=== PATIENT | female | born 1980 | race Caucasian/White ===

== ENCOUNTER 2017-05-23 17:11 | Emergency (ER) | payer MEDICAID ==
[2017-05-23 17:21] VITALS: BP 119/72
--- NOTE | 2017-05-23 17:50 | EDM.PDOC ---
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 Patient is presently 10 weeks . She is a 004. She reports that this morning she developed some vaginal bleeding. Reports that some has been both brown at time and bright red at other time. Not enough to wear a pad. She reports that she did pass a pea-sized clots. Patient has been driving home from [place] today. Reports that later this afternoon the cramping and abdominal pain started. Reports that it is lower in her pelvis bilaterally and radiates to her back. Patient reports associated symptoms of increased urge to urinate. No fevers, nausea, vomiting or dysuria. Patient states that she did have intercourse last night. 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 GENERAL providers Dr. morocho. She has been seeing him for this . Patient reports on Monday, while in [place], she had a severe migraine. She states she has taken Tylenol 3 in the past for migraines. She had 2 Tylenol No. 3 for migraines which she took. She reports the pain was behind her eyes. She was seen at the ER [place]. Reports she was given a combination of fluids, Reglan and Benadryl. States at that time the ER physician performed an ultrasound. She states that she does not recall if the ER physician heard heart tones at that time. Onset: Today - Related Data Allergies Allergy/AdvReac Type Severity Reaction Status Date / Time Sulfa (Sulfonamide Allergy Hives Verified 02/24/15 19:52 Antibiotics) Home Meds: Home Meds Docusate Sodium [Colace] 100 mg PO BID 02/24/15 [History] Pnv with Ca,No.71/Iron/Fa [ Vitamin Tablet] 1 each PO DAILY 02/24/15 [ History] Acetaminophen [Tylenol] 650 mg PO Q6H PRN #50 tablet 02/25/15 [Rx] Hydrocodone/Acetaminophen [Hawthorn 5-325] 1 tab PO Q6HR PRN #10 tablet 05/23/17 [ Rx] Past Medical History Cardiovascular History: Reports: Other (See Below) Other Cardiovascular History: CHF Gastrointestinal History: Reports: GERD 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 GENERAL History: Reports: Neurological History: Reports: Migraines Endocrine/Metabolic History: Reports: Diabetes, Gestational Oncologic (Cancer) History: Reports: Cervix - Past Surgical History HEENT Surgical History: Reports: Adenoidectomy, Tonsillectomy GI Surgical History: Reports: Bariatric Procedure, Cholecystectomy Social & Family History - Family History Family Medical History: Noncontributory - Tobacco Use Smoking Status *Q: Never Smoker Second Hand Smoke Exposure: Yes - Caffeine Use Caffeine Use: Reports: Coffee - Alcohol Use Days Per Week of Alcohol Use: 0 - Recreational Drug Use Recreational Drug Use: No Drug Use in Last 12 Months: No - Living Situation & Occupation Living situation: Reports: with Significant Other Occupation: Employed ED ROS GENERAL - Review of Systems Review Of Systems: See Below Constitutional: Denies: Fever GI/Abdominal: Denies: Nausea, Vomiting : Reports: Pain (pelvic pain bilaterally radiating to her back ), Other ( vaginal bleeding). Denies: Dysuria Neurological: Reports: Headache (headache last Monday, required an ER visit to a hospital in [place]) ED EXAM - Physical Exam Exam: See Below Exam Limited By: No Limitations General Appearance: Alert, WD/WN, No Apparent Distress Respiratory/Chest: No Respiratory Distress, Lungs Clear, Normal Breath Sounds Cardiovascular: Normal Peripheral Pulses, Regular Rate, Rhythm, Systolic Murmur (grade 2) GI/Abdominal: Normal Bowel Sounds, Soft, Non-Tender (Female) Exam: Vaginal Bleeding. No: Cervical Dilatation, Products of Conception Heart Tones: Not [place] Neurological: Alert, Oriented, Normal Cognition Psychiatric: Normal Affect, Normal Mood Skin Exam: Warm, Dry, Normal Color Course - Vital Signs Last Recorded V/S: Last Vital Signs Temp 36.7 C 05/23/17 17:19 Pulse 79 05/23/17 19:50 Resp 18 05/23/17 19:50 BP 119/72 05/23/17 17:19 Pulse Ox 97 05/23/17 19:50 - Orders/Labs/Meds Labs: Laboratory Tests 05/23/17 05/23/17 Range/Units 18:00 18:00 HCG, Quant 4575.0 mIU/mL Urine Color Yellow (Yellow) Urine Appearance Clear (Clear) Urine pH 7.0 (5.0-8.0) Ur Specific [place] 1.010 (1.005-1.030) Urine Protein Negative (Negative) Urine Glucose (UA) Negative (Negative) Urine Ketones Negative (Negative) Urine Occult Blood 2+ H (Negative) Urine Nitrite Negative (Negative) Urine Bilirubin Negative (Negative) Urine Urobilinogen 0.2 (0.2-1.0) Ur Leukocyte Esterase Negative (Negative) Urine RBC 0-5 (0-5) /hpf Urine WBC 0-5 (0-5) /hpf Ur Epithelial Cells 0-5 (0-5) /hpf Urine Bacteria Rare (FEW) /hpf Urine Mucus Not seen (FEW) /hpf - Radiology Interpretation Free Text/Narrative:: Transvaginal ultrasound depression per Dr. Pat: single intrauterine gestation. Embryo identified. No heart activity is seen when examining for 1 minute. Growth of the embryo is not appropriate from previous exam. The impression is a single intrauterine gestation. Lack of appropriate growth is seen from prior exam. No heart activity seen. Findings are compatible with nonviable . - Re-Assessments/Exams Free Text/Narrative Re-Assessment/Exam: 05/23/17 19:35 UA has 2+ blood. HCG is 4575. This is down from 14,166 on 04-27-17. Review of the patient's chart shows that she is O+. I spoke with Dr. Manuel, the patient's 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 GENERAL provider. Her options are she may allow mother nature to run its course. We may give her some Cytotec tonight and tomorrow. She may see him in the office tomorrow to further discuss these options or to discussed a D&C. I discussed the options with the patient. She elects to wait and see Dr. Manuel tomorrow in clinic. She will go over the options with him again and will make a decision at that point. She was advised to return to the ER if her symptoms change or worsen. Hawthorn given for pain. Departure - Departure Time of Disposition: 19:35 Disposition: Home, Self-Care 01 Condition: Fair Clinical Impression: Incomplete miscarriage - Discharge Information Prescriptions: Hydrocodone/Acetaminophen [Hawthorn 5-325] 1 tab PO Q6HR PRN #10 tablet PRN Reason: Pain Instructions: Incomplete Miscarriage Referrals: Yan Manuel MD [Primary Care Provider] - Forms: ED Department Discharge Additional Instructions: Go home and rest. Hawthorn one tablet every 4-6 hours as needed for pain. No driving or operating machinery within 12 hours of taking the norco. Hawthorn can be habit forming, I recommend you take as few as needed to control your pain. Call Dr. Morocho's office first thing in the morning , . He will see you tomorrow to go over further treatment options. Please return to ER if your symptoms change or worsen.
--- NOTE | 2017-05-23 19:10 | US ---
First trimester obstetrical ultrasound: Multiple real-time images were obtained transvaginally. Comparison: Previous obstetrical ultrasound of 04/28/17. Dates: LMP: LMP given as 03/13/17, ARETHA 12/18/17, gestational age 10 weeks 1 day Current ultrasound: ARETHA 01/06/18, gestational age 7 weeks 3 days Earlier ultrasound (04/28/17): ARETHA 12/20/17, gestational age 9 weeks 6 days Single intrauterine gestation is seen. Embryo is identified. No heart activity is seen when examining for 1 minute. Growth of the embryo is also not appropriate from previous exam. Maternal ovaries are unremarkable. Minimal fluid within the endocervical cervical canal is seen. Impression: 1. Single intrauterine gestation. Lack of appropriate growth is seen from prior exam. No heart activity is seen. Findings are compatible with nonviable . 2. Other incidental finding as noted above. Diagnostic code #5
== END 2017-05-23 19:50 | disposition home or self-care (01) ==
LOC: JD.ED 17:11
DX: O03.4 Incomplete spontaneous abortion without complication (principal); O99.411 Diseases of the circulatory system complicating pregnancy, first trimester; I50.9 Heart failure, unspecified; K21.9 Gastro-esophageal reflux disease without esophagitis; Z98.890 Other specified postprocedural states; Z88.2 Allergy status to sulfonamides; Z90.49 Acquired absence of other specified parts of digestive tract; Z3A.10 10 weeks gestation of pregnancy
CPT/HCPCS: 36415; 76817; 76817-26; 81001; 84702; 99283; 99284-25

== ENCOUNTER 2017-05-25 23:54 | Emergency (ER) | payer MEDICAID ==
--- NOTE | 2017-05-26 00:09 | EDM.PDOC ---
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 By history she was to 10 weeks gestation but on ultrasound done 2 days ago identified to have a demise. [place]-rump length was only about 7 mm and no heartbeat was identified on ultrasound. 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 She took this medication at bedtime and within 10-15 minutes was experiencing severe abdominal cramping pain. She is passing some tissue per vagina as well as heavy clotting. Which she passed in the ED was a handful of old and bright red blood clots with perhaps some slight tissue present. She is bleeding heavily per vagina and has passed a good portion of the products of conception. Still having a lot of the lower abdominal cramping pain. Unsure what her blood type is from records that I looked at. Scheduled for D&C later today. Onset Date: 05/25/17 Onset Time: 18:00 Duration: Hour(s): Location: Reports: Abdomen (Diffuse lower abdominal cramping pain secondary to uterine contractions.) Quality: Reports: Sharp, Stabbing Severity: Moderate Improves with: Reports: None Worsens with: Reports: None Context: Reports: Other (Actively miscarrying with the oral Cytotec due to demise diagnosed 2 days ago.). Denies: Activity, Exercise, Lifting, Sick Contact, Trauma Associated Symptoms: Reports: Other (Flowing heavily per vagina with blood clots and parts of products of conception Is scheduled for D&C later today. ) Treatments HEAD WORKER: Reports: Other (see below) Abdominal Pain Score (Numeric/FACES): 10 - Related Data Allergies Allergy/AdvReac Type Severity Reaction Status Date / Time Sulfa (Sulfonamide Allergy Hives Verified 05/26/17 01:08 Antibiotics) Home Meds: Home Meds Docusate Sodium [Colace] 100 mg PO BID 02/24/15 [History] Pnv with Ca,No.71/Iron/Fa [ Vitamin Tablet] 1 each PO DAILY 02/24/15 [ History] Acetaminophen [Tylenol] 650 mg PO Q6H PRN #50 tablet 02/25/15 [Rx] Hydrocodone/Acetaminophen [Coram 5-325] 1 tab PO Q6HR PRN #10 tablet 05/23/17 [ Rx] Past Medical History Cardiovascular History: Reports: Other (See Below) Other Cardiovascular History: CHF Gastrointestinal History: Reports: GERD LABEL PINKER History: Reports: : 5 Para: 4 LMP (Approximate): Other (See Below) (aproximately 10 wks gestation by dates and previous ultrasound. Diagnosed with demiese three days ago by ultrasound through the ED. no heart tones.) Neurological History: Reports: Migraines Endocrine/Metabolic History: Reports: Diabetes, Gestational Oncologic (Cancer) History: Reports: Cervix - Past Surgical History HEENT Surgical History: Reports: Adenoidectomy, Tonsillectomy GI Surgical History: Reports: Bariatric Procedure, Cholecystectomy Social & Family History - Family History Family Medical History: Noncontributory - Tobacco Use Smoking Status *Q: Never Smoker Second Hand Smoke Exposure: Yes - Caffeine Use Caffeine Use: Reports: Coffee - Alcohol Use Days Per Week of Alcohol Use: 0 - Recreational Drug Use Recreational Drug Use: No Drug Use in Last 12 Months: No - Living Situation & Occupation Living situation: Reports: with Significant Other Occupation: Employed ED ROS GENERAL - Review of Systems Review Of Systems: See Below Constitutional: Reports: No Symptoms HEENT: Reports: No Symptoms Respiratory: Reports: No Symptoms Cardiovascular: Reports: No Symptoms Endocrine: Reports: No Symptoms GI/Abdominal: Reports: Abdominal Pain (See history of as above.) : Reports: Other Musculoskeletal: Reports: Back Pain Skin: Reports: No Symptoms Neurological: Reports: No Symptoms Psychiatric: Reports: No Symptoms Hematologic/Lymphatic: Reports: No Symptoms Immunologic: Reports: No Symptoms ED EXAM - Physical Exam Exam: See Below Exam Limited By: No Limitations General Appearance: Alert, WD/WN, Moderate Distress Throat/Mouth: Normal Inspection, Normal Oropharynx, Normal Voice Head: Atraumatic, Normocephalic Neck: Normal Inspection, Supple, Non-Tender, Full Range of Motion Respiratory/Chest: No Respiratory Distress, Lungs Clear, Normal Breath Sounds, No Accessory Muscle Use Cardiovascular: Normal Peripheral Pulses, Regular Rate, Rhythm, No Edema, No Gallop, No Murmur GI/Abdominal: Tender (Infraumbilical to pubic symphysis.), Abnormal Bowel Sounds (Slightly hyperactive bowel sounds throughout.). No: Gravid Uterus Extremities: Normal Inspection, Normal Range of Motion, Non-Tender, Normal Capillary Refill Neurological: Alert, Oriented, CN II-XII Intact, Normal Cognition, Normal Gait, Normal Reflexes, No Motor/Sensory Deficits Psychiatric: Normal Affect, Normal Mood Skin Exam: Warm, Dry, Intact, Normal Color, No Rash Course - Vital Signs Last Recorded V/S: Last Vital Signs Temp 37.7 C 05/26/17 00:00 Pulse 52 L 05/26/17 03:40 Resp 16 05/26/17 01:00 BP 98/57 L 05/26/17 03:40 Pulse Ox 97 05/26/17 03:40 - Orders/Labs/Meds Orders: Active Orders 24 hr Category Date Time Status Admission Status [Patient Status] [ADT] Routine ADT 05/26/17 06:54 Ordered Cardiac Monitoring [RC] . DIRECTED Care 05/26/17 06:54 Ordered HCG QUANTITATIVE,SERUM [CHEM] Stat Lab 05/26/17 06:32 Ordered HEMATOCRIT [HEME] Stat Lab 05/26/17 06:31 Ordered HGB [HEMOGLOBIN] [HEME] Stat Lab 05/26/17 06:48 Ordered TOTAL HEMOGLOBIN [BG] Stat Lab 05/26/17 06:31 Ordered D5%-0.9% NaCl w/ KCl 40 meq [D5 NS with 40 mEq KCl] 1, Med 05/26/17 02:00 Active 000 ml IV ASDIRECTED Oxytocin [Pitocin] 20 unit Med 05/26/17 01:50 Active Lactated Ringers [Ringers, Lactated] 1,000 ml IV TITRATE Medication Orders Oxytocin 20 unit/ Lactated (Ringer's) 1,002 mls @ 30.06 mls/hr IV TITRATE KELLY PRN Reason: 10 MUNITS/MIN Potassium Chloride/Dextrose/Sod Cl (D5 Ns With 40 Meq Kcl) 1,000 mls @ 125 mls/ hr IV ASDIRECTED KELLY Last Admin: 05/26/17 02:27 Dose: 125 mls/hr Labs: Laboratory Tests 05/26/17 05/26/17 05/26/17 Range/Units 00:20 00:20 00:20 WBC 8.92 (3.98-10.04) K/mm3 RBC 4.98 (3.98-5.22) M/mm3 Hgb 10.5 L (11.2-15.7) gm/L Hct 34.5 (34.1-44.9) % MCV 69.3 L (79.4-94.8) fl MCH 21.1 L (25.6-32.2) pg MCHC 30.4 L (32.2-35.5) g/dl RDW Std Deviation 40.1 (36.4-46.3) fL Plt Count 218 (182-369) K/mm3 MPV TNP Neutrophils % (Manual) 47 (40-60) % Band Neutrophils % 0 (0-10) % Lymphocytes % (Manual) 45 H (20-40) % Atypical Lymphs % 0 % Monocytes % (Manual) 5 (2-10) % Eosinophils % (Manual) 1 (0.7-5.8) % Basophils % (Manual) 2 H (0.1-1.2) Platelet Estimate Adequate Plt Morphology Comment Normal Poikilocytosis 1+ slight Anisocytosis 1+ slight Microcytosis 1+ slight Ovalocytes 1+ slight RBC Morph Comment Abnormal Sodium 139 (136-145) mEq/L Potassium 3.4 L (3.5-5.1) mEq/L Chloride 101 (98-107) mEq/L Carbon Dioxide 25 (21-32) mEq/L Anion Gap 16.4 H (5-15) BUN 7 (7-18) mg/dL Creatinine 1.0 (0.55-1.02) mg/dL Est Cr Clr Drug Dosing TNP Estimated GFR (MDRD) > 60 (>60) mL/min BUN/Creatinine Ratio 7.0 L (14-18) Glucose 95 (74-106) mg/dL Calcium 9.4 (8.5-10.1) mg/dL Total Bilirubin 0.3 (0.2-1.0) mg/dL AST 26 (15-37) U/L ALT 33 (14-59) U/L Alkaline Phosphatase 65 (46-116) U/L Total Protein 8.3 H (6.4-8.2) g/dl Albumin 4.5 (3.4-5.0) g/dl Globulin 3.8 gm/dL Albumin/Globulin Ratio 1.2 (1-2) Blood Type O POSITIVE Meds: Medications Generic Name Dose Route Start Last Admin Trade Name Bennie PRN Reason Stop Dose Admin Oxytocin 20 unit/ Lactated 1,002 mls @ 30.06 mls/hr 05/26/17 01:50 Ringer's IV TITRATE KELLY 10 MUNITS/MIN Potassium Chloride/Dextrose/Sod Cl 1,000 mls @ 125 mls/hr 05/26/17 02:00 02:27 D5 Ns With 40 Meq Kcl IV 125 mls/hr ASDIRECTED KELLY Administration Discontinued Medications Generic Name Dose Route Start Last Admin Trade Name Bennie PRN Reason Stop Dose Admin Fentanyl 100 mcg 05/26/17 04:31 05/26/17 04:41 Sublimaze IVPUSH 05/26/17 04:32 100 mcg ONETIME ONE Administration Hydromorphone HCl 1 mg 05/26/17 00:12 05/26/17 00:26 Dilaudid IVPUSH 05/26/17 00:13 1 mg ONETIME ONE Administration Hydromorphone HCl 0.5 mg 05/26/17 01:21 05/26/17 01:26 Dilaudid IVPUSH 05/26/17 01:22 0.5 mg ONETIME ONE Administration Hydromorphone HCl 1 mg 05/26/17 03:22 05/26/17 03:31 Dilaudid IVPUSH 05/26/17 03:23 1 mg ONETIME ONE Administration Hydromorphone HCl Confirm 05/26/17 03:32 05/26/17 04:44 Dilaudid Administered 05/26/17 03:33 Not Given Dose 1 mg .ROUTE .STK-MED ONE Hydromorphone HCl 1 mg 05/26/17 06:53 Dilaudid IVPUSH 05/26/17 06:54 ONETIME ONE Sodium Chloride 1,000 mls @ 150 mls/hr 05/26/17 00:15 05/26/17 00:29 Normal Saline IV 150 mls/hr ASDIRECTED KELLY Administration Oxytocin 20 unit/ Lactated 1,002 mls @ 45.09 mls/hr 05/26/17 00:30 05/26/17 01:47 Ringer's IV 10 munits/min TITRATE KELLY 30.06 mls/hr Protocol Titration 15 MUNITS/MIN Lorazepam 0.5 mg 05/26/17 01:21 05/26/17 01:27 Ativan IVPUSH 05/26/17 01:22 0.5 mg ONETIME ONE Administration Metoclopramide HCl 7.5 mg 05/26/17 00:12 05/26/17 00:26 Reglan IVPUSH 05/26/17 00:13 7.5 mg ONETIME ONE Administration - Radiology Interpretation Free Text/Narrative:: 36-year-old female insulin the ED with severe lower abdominal cramping pain no doubt secondary to Cytotec given earlier today for induction of miscarriage. Patient was identified to have demise on ultrasound 2 days ago. She was supposed to be around 10 weeks gestation [place]-rump length was estimated to be about 7 weeks and was crenated abnormal and formation. There is no heart tones identified. She's seen Dr. Manuel yesterday her LABEL PINKER. He prescribed Cytotec and she is scheduled for D&C T day. She presents with severe lower abdominal cramping pain with heavy flow per vagina. Some products of conception are noted in the fact that she passed per vagina. She is quite anxious at this time to pursue a D&C. Will establish an IV deep normal saline at 150 mils per hour. Will give Dilaudid 1 mg IV with Reglan 7.5 mg IV to relieve her pain and discomfort. Once her pain is under control Y will have a look at the cervix to see if there is tissue in the cervical canal and remove it. He time I will start her on Pitocin drip at 10 mU/m. - Re-Assessments/Exams Free Text/Narrative Re-Assessment/Exam: 05/26/17 01:49 removed a handful of clots from the vagina no tissue however. The cervical os did not contain any tissue at all. It is open to a fingertip. Pain is much better and controlled. Plan will be to keep her in the emergency room overnight as she is scheduled for D&C at 10:00 this morning. We'll continue low-dose Pitocin at 10 milliunits per hour. Bleeding at this time is minimal. 05/26/17 01:51 labs are back and reveal a total white count of 8.92 differential pending. Hemoglobin is 10.5 MCV is a little low at 69.3 suggesting iron deficiency. Hematocrit is 34.5 platelets 218,000 sodium 139 potassium low- normal at 3.4 chloride 101 bicarbonate 25 and a gap is 16.4. Will switch her IV to be D5 normal saline with 40 mg of KCl per liter to run at 125 mils per hour overnight. This will improve her potassium status preoperatively. 05/26/17 04:32 still bleeding modestly. I just looked through the the clots that were passed there is no tissue within it. Dilaudid 1mg IV given recently did not help much for pain relief. Her persistent severe pain suggests and may still have tissue in the cervical canal. We'll try fentanyl 100 g IV for pain relief at this time as it will not likely lower her pressure she may need oxygen support however. 05/26/17 06:[address] Manuel her LABEL PINKER and the plan will be to go ahead with the proposed D&C later this morning. He'll have a repeat hemoglobin and hematocrit and quantitative beta-hCG done on this patient at this time. Departure - Departure Time of Disposition: 06:57 Disposition: DC/Tfer to [facility] Access 66 Condition: Fair Clinical Impression: Incomplete - Discharge Information Forms: ED Department Discharge - My Orders Last 24 Hours: My Active Orders 05/26/17 01:50 Oxytocin [Pitocin] 20 unit Lactated Ringers [Ringers, Lactated] 1,000 ml IV TITRATE 05/26/17 02:00 D5%-0.9% NaCl w/ KCl 40 meq [D5 NS with 40 mEq KCl] 1,000 ml IV ASDIRECTED 05/26/17 06:31 HEMATOCRIT [HEME] Stat TOTAL HEMOGLOBIN [BG] Stat 05/26/17 06:32 HCG QUANTITATIVE,SERUM [CHEM] Stat 05/26/17 06:48 HGB [HEMOGLOBIN] [HEME] Stat 05/26/17 06:54 Admission Status [Patient Status] [ADT] Routine Cardiac Monitoring [RC] . DIRECTED - Assessment/Plan Last 24 Hours: My Active Orders 05/26/17 01:50 Oxytocin [Pitocin] 20 unit Lactated Ringers [Ringers, Lactated] 1,000 ml IV TITRATE 05/26/17 02:00 D5%-0.9% NaCl w/ KCl 40 meq [D5 NS with 40 mEq KCl] 1,000 ml IV ASDIRECTED 05/26/17 06:31 HEMATOCRIT [HEME] Stat TOTAL HEMOGLOBIN [BG] Stat 05/26/17 06:32 HCG QUANTITATIVE,SERUM [CHEM] Stat 05/26/17 06:48 HGB [HEMOGLOBIN] [HEME] Stat 05/26/17 06:54 Admission Status [Patient Status] [ADT] Routine Cardiac Monitoring [RC] . DIRECTED
[2017-05-26] MEDS ORDERED: Metoclopramide 10 MG/2 ML SDV IVPUSH ONE (00:12)
[2017-05-26] MEDS ORDERED: HYDROmorphone 1 MG/ML Syringe IVPUSH ONE ×3 (00:12→06:53)
[2017-05-26] MEDS ORDERED: Sodium Chloride 0.9% 1,000 ML IV SCH (00:15)
[2017-05-26] MEDS ORDERED: LORazepam 2 MG/ML MDV IVPUSH ONE (01:21)
[2017-05-26] MEDS ORDERED: HYDROmorphone 0.5 MG/0.5 ML Syringe IVPUSH ONE (01:21)
[2017-05-26] MEDS ORDERED: D5%-0.9% NaCl w/ KCl 40 meq 1,000 ML IV SCH (02:00)
[2017-05-26] MEDS ORDERED: HYDROmorphone 1 MG/ML Syringe ONE (03:32)
[2017-05-26 03:41] VITALS: BP 98/57
[2017-05-26] MEDS ORDERED: fentaNYL 100 MCG/2 ML SDV IVPUSH ONE (04:31)
== END 2017-05-26 07:17 | disposition critical access hospital (66) ==
LOC: JD.ED 23:54
DX: O03.4 Incomplete spontaneous abortion without complication (principal); I50.9 Heart failure, unspecified; K21.9 Gastro-esophageal reflux disease without esophagitis; Z85.41 Personal history of malignant neoplasm of cervix uteri; Z98.890 Other specified postprocedural states; Z90.49 Acquired absence of other specified parts of digestive tract; Z98.84 Bariatric surgery status; Z88.2 Allergy status to sulfonamides
CPT/HCPCS: 36415; 80053; 84702; 85014; 85018; 85025; 86900; 86901; 88305; 96361; 96365; 96366; 96375; 96376; 99285; J1170; J2060; J2590; J2765; J3010; J3480; J7040; J7120

== ENCOUNTER → 2017-05-26 | Day surgery (SDC) | payer MEDICAID ==
[~2017-05-26] MED LIST: Dexamethasone 4 MG/ML SDV ONE; HYDROmorphone 0.5 MG/0.5 ML Syringe IVPUSH PRN; Ketorolac 30 MG/ML SDV IVPUSH SCH; Lactated Ringers 1,000 ML IV SCH; Lactated Ringers 1,000 ML ONE; Lidocaine 1% 4 ML ONE; Lidocaine 1%/Sod Bicarbonate in NS 8.4% 1 ML Syringe IV PRN; Meperidine PF 50 MG/ML Syringe IVPUSH PRN; Midazolam 1 MG/ML 2 ML SDV ONE; Ondansetron 4 MG/2 ML SDV IVPUSH PRN; Ondansetron 4 MG/2 ML SDV IVPUSH SCH; Ondansetron 4 MG/2 ML SDV ONE; Oxytocin 10 Units/1 ML SDV ONE; Propofol 200 MG/20 ML SDV ONE; Sodium Chloride 0.9% 1,000 ML IV SCH; Sodium Chloride 0.9% 10 ML Syringe FLUSH PRN; Succinylcholine/Normal Saline 100 MG/5 ML Syringe ONE; ceFAZolin 1 GM Vial ONE; fentaNYL 100 MCG/2 ML SDV IVPUSH ONE; fentaNYL 100 MCG/2 ML SDV IVPUSH PRN; fentaNYL 250 MCG/5 ML SDV ONE
--- NOTE | 2017-05-26 08:05 | PCM.PREANE ---
Preanesthetic Assessment - Anesthesia/Transfusion/Family Hx Anesthesia History: Prior Anesthesia Without Reaction Family History of Anesthesia Reaction: No Transfusion History: No Prior Transfusion(s) - Review of Systems General: Chills (after took those 4 pills last night) Pulmonary: No Symptoms Cardiovascular: No Symptoms Gastrointestinal: Abdominal pain (contractions cramps), Nausea (dry heaves-) Neurological: No Symptoms Other: Reports: None - Physical Assessment NPO Status Date: 05/25/17 NPO Status Time: 20:30 (ice chips during the night) Pulse: 68 O2 Sat by Pulse Oximetry: 97 Respiratory Rate: 18 Blood Pressure: 112/55 Temperature: 97 F Height: 5 ft 5 in Weight: 92 kg ASA Class: 2 Mental Status: Alert & Oriented x3 Airway Class: Mallampati = 1 Dentition: Reports: Normal Dentition Thyro-Mental Finger Breadths: 3 Mouth Opening Finger Breadths: 3 ROM/Head Extension: Full Lungs: Clear to auscultation, Normal respiratory effort Cardiovascular: Regular Rate, Regular Rhythm - Lab Values: Laboratory Last Values WBC 6.01 K/mm3 (3.98-10.04) 05/25/17 14:30 RBC 4.61 M/mm3 (3.98-5.22) 05/25/17 14:30 Hgb 9.9 gm/L (11.2-15.7) L 05/25/17 14:30 Hct 32.3 % (34.1-44.9) L 05/25/17 14:30 MCV 70.1 fl (79.4-94.8) L 05/25/17 14:30 MCH 21.5 pg (25.6-32.2) L 05/25/17 14:30 MCHC 30.7 g/dl (32.2-35.5) L 05/25/17 14:30 RDW Std Deviation 41.3 fL (36.4-46.3) 05/25/17 14:30 Plt Count 169 K/mm3 (182-369) L 05/25/17 14:30 MPV TNP 05/25/17 14:30 Neut % (Auto) 59.9 % (34.0-71.1) 05/25/17 14:30 Lymph % (Auto) 29.1 % (19.3-51.7) 05/25/17 14:30 Letcher % (Auto) 8.5 % (4.7-12.5) 05/25/17 14:30 Eos % (Auto) 2.0 (0.7-5.8) 05/25/17 14:30 Baso % (Auto) 0.5 % (0.1-1.2) 05/25/17 14:30 Neut # (Auto) 3.60 K/mm3 (1.56-6.13) 05/25/17 14:30 Lymph # (Auto) 1.75 K/mm3 (1.18-3.74) 05/25/17 14:30 Letcher # (Auto) 0.51 K/mm3 (0.24-0.36) H 05/25/17 14:30 Eos # (Auto) 0.12 K/mm3 (0.04-0.36) 05/25/17 14:30 Baso # (Auto) 0.03 K/mm3 (0.01-0.08) 05/25/17 14:30 Manual Slide Review Abnormal smear 05/25/17 14:30 HCG, Quant 3174.0 mIU/mL 05/25/17 14:30 Blood Type O POSITIVE 05/25/17 14:30 Gel Antibody Screen Negative 05/25/17 14:30 Crossmatch See Detail 05/25/17 14:30 hgb 7.6 this am. Will receive 2 units RBC - Allergies Allergies/Adverse Reactions: Allergies Allergy/AdvReac Type Severity Reaction Status Date / Time Sulfa (Sulfonamide Allergy Hives Verified 05/26/17 01:08 Antibiotics) - Blood Blood Available: Yes Product(s) Available: PRBC (receiving 2 units this am) - Acknowledgements Anesthesia Type Planned: General Anesthesia Pt an Appropriate Candidate for the Planned Anesthesia: Yes Alternatives and Risks of Anesthesia Discussed w Pt/Guardian: Yes Pt/Guardian Understands and Agrees with Anesthesia Plan: Yes PreAnesthesia Questionnaire Cardiovascular History: Reports: Other (See Below) ( cardiomyopathy 2010) Other Cardiovascular History: CHF Respiratory History: Reports: None Gastrointestinal History: Reports: GERD [employer]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: Neurological History: Reports: Migraines Endocrine/Metabolic History: Reports: Diabetes, Gestational Oncologic (Cancer) History: Reports: Cervix - Past Surgical History HEENT Surgical History: Reports: Adenoidectomy, Tonsillectomy, Other (See Below ) (wisdom teeth) GI Surgical History: Reports: Bariatric Procedure, Cholecystectomy Female Surgical History: Reports: Section - History Comment History Comment: macrobid take after intercourse for prophylaxis - SUBSTANCE USE Smoking Status *Q: Never Smoker Tobacco Use Within Last Twelve Months: No Second Hand Smoke Exposure: No Days Per Week of Alcohol Use: 0 Recreational Drug Use History: No - HOME MEDS Home Medications: Home Meds Docusate Sodium [Colace] 100 mg PO BID 02/24/15 [History] Pnv with Ca,No.71/Iron/Fa [ Vitamin Tablet] 1 each PO DAILY 02/24/15 [ History] Acetaminophen [Tylenol] 650 mg PO Q6H PRN #50 tablet 02/25/15 [Rx] Hydrocodone/Acetaminophen [[place] 5-325] 1 tab PO Q6HR PRN #10 tablet 05/23/17 [ Rx] Ibuprofen [Advil] 400 mg PO Q6H PRN #50 tab 05/26/17 [Rx] Misoprostol [Cytotec] 200 mcg PO ONETIME #2 tablet 05/26/17 [Rx] Nitrofurantoin Monohyd/M-Cryst [Nitrofurantoin Letcher-Mcr 100 mg] 100 mg PO ASDIRECTED 05/26/17 [History] - CURRENT (IN HOUSE) MEDS Current Meds: Current Medications Lactated Ringer's (Ringers, Lactated) 1,000 mls @ 125 mls/hr IV ASDIRECTED KELLY Stop: 05/26/17 23:00 Sodium Chloride (Normal Saline) 1,000 mls @ 25 mls/hr IV ASDIRECTED KELLY Stop: 05/30/17 07:41 Lidocaine/Sodium Bicarbonate (Buffered Lidocaine 1% In Ns 8.4%) 0.25 ml IV ONETIME PRN PRN Reason: Prior to IV Start Stop: 05/26/17 18:00 Sodium Chloride (Saline Flush) 10 ml FLUSH ASDIRECTED PRN PRN Reason: Keep Vein Open Stop: 05/26/17 18:00
--- NOTE | 2017-05-26 11:18 | PCM.OPNOTE ---
- General Post-Op/Procedure Note Date of Surgery/Procedure: 05/26/17 Operative Procedure(s): Incomplete with hemorrhage Pre Op Diagnosis: Incomplete occurs approximately 6:30 this morning with hemorrhage required 2 units packed red blood cell transfusion prior to and during surgery because of anemia Post-Op Diagnosis: Same Anesthesia Technique: General ET tube Primary Surgeon: Yan Manuel Secondary Surgeon: May Davis (MS3) Anesthesia Provider: Gretchen Banerjee Fluid Replacement, Intraop: 400 Output, Urine Amount: 100 EBL in mLs: 100 Drain/Tube Comments:: None Complications: None Condition: Good Free Text/Narrative:: Intake & Output 05/25/17 05/26/17 05/26/17 22:59 06:59 14:59 Intake Total 337 Balance 337 Patient was seen assistant center manager hours emergency room with cramping and bleeding and passed some tissue this morning at 0630 hrs. surgery D&C had been planned for missed but because of passage of tissue this converted to a incomplete with hemorrhage her hemoglobin dropped below 8 and patient was given 2 units of packed red blood cell transfusion just prior to and completed during surgery patient was transported to operating room and placed under general anesthesia in low dorsal lithotomy position and prepared and draped in a sterile fashion timeout performed confirming name date of , and procedure as suction and sharp curettage for now incomplete with hemorrhage SCDs in place and functioning prior to surgery she received 2 g of Ancef intravenously prior surgery blood type is O+ the examination under anesthesia revealed approximately 8-10 week size uterus there was tissue in the os including large blood clot which was removed with ring forceps and uterus sounded to 10 cm a #8 and subsequently #10 suction cannula curved inserted and used for the suction portion of the D&C sharp curettage performed followed by additional suction and all tissue sent to pathology for tissue evaluation patient tolerated the procedure well she did receive 2 units of packed red blood cells prior to and during surgery because of the continued bleeding. Patient seen postanesthesia care unit in satisfactory condition no heavy vaginal bleeding after completion of the D&C. No family members available to discuss patient's condition patient will be dismissed to return to clinic to see me in approximately 3-4 weeks she has appointment for follow-up obtain quantitative beta-hCG day prior to her visit. Length of surgery time 9 minutes
--- NOTE | 2017-05-26 11:28 | PCM.POSTAN ---
POST ANESTHESIA ASSESSMENT - MENTAL STATUS Mental Status: alert - VITAL SIGNS Pulse Rate: 79 SaO2: 97 Resp Rate: 15 Blood Pressure: 120/58 Temperature: 97 F - RESPIRATORY Respiratory Status: respiratory rate WNL, airway patent, O2 saturation stable, supplemental oxygen - CARDIOVASCULAR CV Status: pulse rate WNL, blood pressure stable - GASTROINTESTINAL GI Status: no symptoms - PAIN Pain Score: 0 - POST OP HYDRATION Hydration Status: adequate & stable
--- NOTE | 2017-05-26 13:43 | PCM48HPAN ---
Post Anesthesia Note - EVALUATION WITHIN 48HRS OF ANESTHETIC Vital Signs in Normal Range: Yes Patient Participated in Evaluation: Yes Respiratory Function Stable: Yes Airway Patent: Yes Cardiovascular Function Stable: Yes Hydration Status Stable: Yes Pain Control Satisfactory: Yes Nausea and Vomiting Control Satisfactory: Yes Mental Status Recovered: Yes (sitting up in bed. on phone)
[2017-05-26 14:30] VITALS: BP 123/72
== END | disposition home or self-care (01) ==
LOC: JD.SDS 07:50
PROVIDERS: ATTEND Obstetrics & Gynecology
DX: O03.4 Incomplete spontaneous abortion without complication (principal); O13.9 Gestational [pregnancy-induced] hypertension without significant proteinuria, unspecified trimester; F32.9 Major depressive disorder, single episode, unspecified; K21.9 Gastro-esophageal reflux disease without esophagitis; E53.8 Deficiency of other specified B group vitamins; E55.9 Vitamin D deficiency, unspecified; Z88.2 Allergy status to sulfonamides; Z90.49 Acquired absence of other specified parts of digestive tract; Z98.890 Other specified postprocedural states; Z72.0 Tobacco use; Z68.33 Body mass index [BMI] 33.0-33.9, adult
CPT/HCPCS: 36415; 36430; 59812; 84702; 85025; 86850; 86900; 86901; 86922; 88305; J0330; J0690; J1100; J1885; J2250; J2405; J2590; J3010; J7040; J7050; J7120; P9016; 01965; J2704